=== PATIENT | male | born 1940 | race Asian ===

== ENCOUNTER 2017-01-05 09:39 | Outpatient (CLI) | payer OTHER, MEDICARE ==
[~2017-01-05 09:39] MED LIST: BENICAR20 MG PO; LIPITOR10 MG PO; VENLAFAXINE100 MG PO; WARF1TAB7 PO
== END 2017-01-05 19:01 | disposition home or self-care (01) ==
LOC: LABW 09:39
DX: Z79.01 Long term (current) use of anticoagulants (principal); Z51.81 Encounter for therapeutic drug level monitoring
CPT/HCPCS: 36415; 85610

== ENCOUNTER 2017-01-31 09:43 | Outpatient (CLI) | payer OTHER, MEDICARE ==
[2017-01-31 10:09] LABS: PLATELET COUNT 266 K/uL (142-355)
== END 2017-01-31 19:40 | disposition home or self-care (01) ==
LOC: LABW 09:43
PROVIDERS: Internal Medicine
DX: Z79.01 Long term (current) use of anticoagulants (principal); Z51.81 Encounter for therapeutic drug level monitoring; E11.9 Type 2 diabetes mellitus without complications
CPT/HCPCS: 36415; 80053; 80061; 81000; 82043; 82570; 83036; 84443; 85027; 85610

== ENCOUNTER 2017-03-08 10:53 | Outpatient (CLI) | payer OTHER, MEDICARE | END 2017-03-08 19:07 | disposition home or self-care (01) | LOC: LABW 10:53 | DX: Z79.01 Long term (current) use of anticoagulants (principal); Z51.81 Encounter for therapeutic drug level monitoring | CPT/HCPCS: 36415; 85610 ==

== ENCOUNTER 2017-05-10 10:11 | Outpatient (CLI) | payer OTHER | END 2017-05-10 19:05 | disposition home or self-care (01) | LOC: LABW 10:11 | DX: Z79.01 Long term (current) use of anticoagulants (principal); Z51.81 Encounter for therapeutic drug level monitoring | CPT/HCPCS: 36415; 85610 ==

== ENCOUNTER 2017-06-14 10:10 | Outpatient (CLI) | payer OTHER | END 2017-06-14 19:14 | disposition home or self-care (01) | LOC: LABW 10:10 | DX: Z79.01 Long term (current) use of anticoagulants (principal); Z51.81 Encounter for therapeutic drug level monitoring | CPT/HCPCS: 36415; 85610 ==

== ENCOUNTER 2017-07-12 10:29 | Outpatient (CLI) | payer OTHER ==
[2017-07-12 10:59] LABS: PLATELET COUNT 244 K/uL (142-355)
[2017-07-12 11:24] LABS: POTASSIUM 3.8 mmol/L (3.6-5.2)
== END 2017-07-12 19:54 | disposition home or self-care (01) ==
LOC: LABW 10:29
PROVIDERS: Internal Medicine
DX: Z79.01 Long term (current) use of anticoagulants (principal); Z51.81 Encounter for therapeutic drug level monitoring; E11.9 Type 2 diabetes mellitus without complications; I48.0 Paroxysmal atrial fibrillation
CPT/HCPCS: 36415; 80053; 80061; 81000; 82043; 82570; 83036; 84439; 84443; 85027; 85610

== ENCOUNTER 2017-08-16 10:01 | Outpatient (CLI) | payer OTHER | END 2017-08-16 11:05 | disposition home or self-care (01) | LOC: LABW 10:01 | DX: Z79.01 Long term (current) use of anticoagulants (principal); Z51.81 Encounter for therapeutic drug level monitoring | CPT/HCPCS: 36415; 85610 ==

== ENCOUNTER 2017-09-29 10:45 | Outpatient (CLI) | payer OTHER | END 2017-09-29 11:45 | disposition home or self-care (01) | LOC: LABW 10:45 | DX: Z79.01 Long term (current) use of anticoagulants (principal); Z51.81 Encounter for therapeutic drug level monitoring | CPT/HCPCS: 36415; 85610 ==

== ENCOUNTER 2018-01-31 10:35 | Outpatient (CLI) | payer OTHER | END 2018-01-31 21:47 | disposition home or self-care (01) | LOC: LABW 10:35 | DX: Z79.01 Long term (current) use of anticoagulants (principal); Z51.81 Encounter for therapeutic drug level monitoring | CPT/HCPCS: 36415; 85610 ==

== ENCOUNTER 2018-02-02 09:29 | Outpatient (CLI) | payer OTHER | END 2018-02-02 21:22 | disposition home or self-care (01) | LOC: LABW 09:29 | DX: Z79.01 Long term (current) use of anticoagulants (principal); Z51.81 Encounter for therapeutic drug level monitoring | CPT/HCPCS: 36415; 85610 ==

== ENCOUNTER 2018-03-02 11:09 | Outpatient (CLI) | payer OTHER | END 2018-03-02 20:26 | disposition home or self-care (01) | LOC: LABW 11:09 | DX: Z79.01 Long term (current) use of anticoagulants (principal); Z51.81 Encounter for therapeutic drug level monitoring | CPT/HCPCS: 36415; 85610 ==

== ENCOUNTER 2018-04-10 09:24 | Emergency (ER) | payer OTHER ==
[~2018-04-10] VITALS: Ht 172.7 cm; Wt 72.6 kg
[2018-04-10 10:11] LABS: PLATELET COUNT 207 K/uL (142-355)
[2018-04-10 10:24] LABS: POTASSIUM 4.9 mmol/L (3.6-5.2)
[2018-04-10 12:29] VITALS: TEMP 98
[2018-04-10 12:50] VITALS: BP 122/59
== END 2018-04-10 12:50 | disposition home or self-care (01) ==
LOC: ED 09:24
PROVIDERS: Family Medicine
DX: S70.02XA Contusion of left hip, initial encounter (principal); W18.39XA Other fall on same level, initial encounter; Z91.81 History of falling; Y93.89 Activity, other specified; Y92.89 Other specified places as the place of occurrence of the external cause; Y99.8 Other external cause status; I69.359 Hemiplegia and hemiparesis following cerebral infarction affecting unspecified side
CPT/HCPCS: 36415; 80048; 81000; 85027; 96372; 99283; J1885

== ENCOUNTER 2018-04-25 11:46 | Outpatient (CLI) | payer OTHER ==
[2018-04-25 12:24] LABS: PLATELET COUNT 556 K/uL (142-355)
[2018-04-25 12:36] LABS: POTASSIUM 4.3 mmol/L (3.6-5.2)
== END 2018-04-25 23:20 | disposition home or self-care (01) ==
LOC: LABW 11:46
PROVIDERS: Physician Assistant
DX: R53.1 Weakness (principal); I63.8 Other cerebral infarction; R35.0 Frequency of micturition; Z79.899 Other long term (current) drug therapy; Z51.81 Encounter for therapeutic drug level monitoring; Z79.01 Long term (current) use of anticoagulants
CPT/HCPCS: 36415; 80053; 82607; 83036; 83735; 84153; 84439; 84443; 85027; 85610

== ENCOUNTER 2018-04-26 10:55 | Outpatient (CLI) | payer OTHER ==
[~2018-04-26] VITALS: Ht 175.3 cm; Wt 74.8 kg
== END 2018-04-27 11:45 | disposition home or self-care (01) ==
LOC: INF 10:55
PROC: 30233N1 Transfusion of Nonautologous Red Blood Cells into Peripheral Vein, Percutaneous Approach (ICD-10-PCS; principal; 2018-04-26)
PROC: 30233N1 Transfusion of Nonautologous Red Blood Cells into Peripheral Vein, Percutaneous Approach (ICD-10-PCS; 2018-04-27)
DX: I63.8 Other cerebral infarction (principal); D50.8 Other iron deficiency anemias
CPT/HCPCS: 36430; 86850; 86900; 86901; 86922; 96374; J1940; P9016

== ENCOUNTER 2018-05-01 10:43 | Outpatient (CLI) | payer OTHER ==
[2018-05-01 11:00] LABS: PLATELET COUNT 412 K/uL (142-355)
== END 2018-05-01 22:23 | disposition home or self-care (01) ==
LOC: LABW 10:43
PROVIDERS: Physician Assistant
DX: Z79.01 Long term (current) use of anticoagulants (principal); Z51.81 Encounter for therapeutic drug level monitoring; D50.8 Other iron deficiency anemias
CPT/HCPCS: 36415; 85027; 85610

== ENCOUNTER 2018-06-25 05:39 | Emergency (ER) | payer OTHER ==
[~2018-06-25] VITALS: Ht 170.2 cm; Wt 521.6 kg
[2018-06-25 05:56] VITALS: TEMP 98.2
[2018-06-25 07:28] VITALS: BP 156/82
== END 2018-06-25 07:28 | disposition home or self-care (01) ==
LOC: ED 05:39
DX: S00.83XA Contusion of other part of head, initial encounter (principal); S00.81XA Abrasion of other part of head, initial encounter; R51 Headache; W01.198A Fall on same level from slipping, tripping and stumbling with subsequent striking against other object, initial encounter; Y92.89 Other specified places as the place of occurrence of the external cause
CPT/HCPCS: 99283

== ENCOUNTER 2018-09-18 10:12 | Outpatient (CLI) | payer OTHER | END 2018-09-18 21:22 | disposition home or self-care (01) | LOC: LABW 10:12 | DX: Z79.01 Long term (current) use of anticoagulants (principal); Z51.81 Encounter for therapeutic drug level monitoring | CPT/HCPCS: 36415; 85610 ==

== ENCOUNTER 2018-12-03 11:42 | Outpatient (CLI) | payer OTHER | END 2018-12-03 20:27 | disposition home or self-care (01) | LOC: LABW 11:42 | DX: Z79.01 Long term (current) use of anticoagulants (principal); Z51.81 Encounter for therapeutic drug level monitoring | CPT/HCPCS: 36415; 85610 ==